=== PATIENT | male | born 1980 | race Caucasian/White ===

== ENCOUNTER → 2016-08-23 | Outpatient (CLI) | payer OTHER | LOC: BMCIMAGING 08:21 | PROVIDERS: ATTEND Internal Medicine Endocrinology, Diabetes & Metabolism | DX: Z85.850 Personal history of malignant neoplasm of thyroid (principal); Z90.89 Acquired absence of other organs; Z08 Encounter for follow-up examination after completed treatment for malignant neoplasm | CPT/HCPCS: 76536-PO ==